=== PATIENT | male | born 1965 | race American Indian/Alaskan Native ===

== ENCOUNTER 2017-03-13 15:27 | Emergency (ER) | payer MEDICAID, OTHER ==
[2017-03-13 15:37] VITALS: BP 160/85
--- NOTE | 2017-03-13 16:34 | EDM.PDOC ---
ED HPI GENERAL MEDICAL PROBLEM - General Chief Complaint: Upper Extremity Injury/Pain Stated Complaint: LEFT ELBOW Time Seen by Provider: 03/13/17 16:31 Source of Information: Reports: Shelter Records History Limitations: Reports: No Limitations - History of Present Illness INITIAL COMMENTS - FREE TEXT/NARRATIVE: Pt states that he fell today and landed on his left elbow. c/o pain with bending. States that he has shoulder pain as well. States that he is supposed to get rotator cuff surgery soon. Onset: Today Duration: Constant Location: Reports: Upper Extremity, Left Quality: Reports: Ache Severity: Moderate Improves with: Reports: None Worsens with: Reports: Movement Context: Reports: Activity Associated Symptoms: Reports: No Other Symptoms Left Elbow Pain Score (Numeric/FACES): 7 - Related Data Allergies Allergy/AdvReac Type Severity Reaction Status Date / Time No Known Allergies Allergy Verified 03/13/17 15:33 Home Meds: Home Meds Aspirin [Kaiser Chewable] 81 mg PO 03/13/17 [History] Lisinopril 5 mg PO DAILY 03/13/17 [History] Past Medical History HEENT History: Reports: Impaired Vision Cardiovascular History: Reports: Hypertension Endocrine/Metabolic History: Reports: Other (See Below) Other Endocrine/Metabolic History: border line DM - Past Surgical History GI Surgical History: Reports: Appendectomy Social & Family History - Family History Family Medical History: Noncontributory - Tobacco Use Smoking Status *Q: Never Smoker Second Hand Smoke Exposure: No - Caffeine Use Caffeine Use: Reports: Coffee - Recreational Drug Use Recreational Drug Use: No Review of Systems - Review of Systems Review Of Systems: See Below Musculoskeletal: Reports: Arm Pain ED EXAM, GENERAL - Physical Exam Exam: See Below Exam Limited By: No Limitations General Appearance: Alert, WD/WN, No Apparent Distress Respiratory/Chest: No Respiratory Distress, Lungs Clear, Normal Breath Sounds, No Accessory Muscle Use, Chest Non-Tender Cardiovascular: Normal Peripheral Pulses, Regular Rate, Rhythm, No Edema, No Gallop, No JVD, No Murmur, No Rub Peripheral Pulses: 4+: Radial (L), Radial (R) Extremities: Normal Inspection, No Pedal Edema, Normal Capillary Refill, Arm Pain, Limited Range of Motion, Increased Warmth, Redness Neurological: Alert, Oriented, CN II-XII Intact, Normal Cognition, Normal Gait, Normal Reflexes, No Motor/Sensory Deficits Course - Vital Signs Last Recorded V/S: Last Vital Signs Temp 98.4 F 03/13/17 15:36 Pulse 103 H 03/13/17 15:36 Resp 20 03/13/17 15:36 BP 160/85 H 03/13/17 15:36 Pulse Ox 98 03/13/17 15:36 - Radiology Interpretation Free Text/Narrative:: No acute fracture of elbow Departure - Departure Time of Disposition: 17:07 Disposition: Home, Self-Care 01 Condition: Good Clinical Impression: Elbow contusion Qualifiers: Encounter type: initial encounter Laterality: left Qualified Code(s): S50.02XA - Contusion of left elbow, initial encounter - Discharge Information Instructions: How to Use a Sling, Doew-ir-Trow, Elbow Contusion Forms: ED Department Discharge Additional Instructions: Take motrin as needed for pain. Keep arm in sling for comfort but do range of motion to prevent arm from becoming stiff. Follow up in clinic in 1 week if no improvement. return for worsening symptoms.
== END 2017-03-13 17:12 | disposition home or self-care (01) ==
LOC: DL.ED 15:27
DX: S50.02XA Contusion of left elbow, initial encounter (principal); H54.7 Unspecified visual loss; I10 Essential (primary) hypertension; E11.9 Type 2 diabetes mellitus without complications; Z90.49 Acquired absence of other specified parts of digestive tract; W19.XXXA Unspecified fall, initial encounter; Z79.899 Other long term (current) drug therapy
CPT/HCPCS: 73070-LT; 99284

== ENCOUNTER 2017-09-13 15:11 | Emergency (ER) | payer MEDICAID, OTHER ==
[2017-09-13 15:21] VITALS: BP 152/96
[2017-09-13] MEDS ORDERED: methylPREDNISolone Sodium Succinate 125 MG/2 ML SDV IM ONE (16:00)
--- NOTE | 2017-09-13 16:12 | EDM.PDOC ---
ED HPI GENERAL MEDICAL PROBLEM - General Chief Complaint: Back Pain or Injury Stated Complaint: SEVERE BACK PAIN, [id number] Time Seen by Provider: 09/13/17 15:50 Source of Information: Reports: Patient History Limitations: Reports: No Limitations - History of Present Illness INITIAL COMMENTS - FREE TEXT/NARRATIVE: This 52 yo male patient reports to the ED with increased lower back pain. The patient reports he has been previously diagnosed with arthritis in his back, but has had increased symptoms over the past 2 days. The patient reports he is on an antiinflammatory, but continues to have increased lower back pain. The patient has a follow-up examination with his primary provider on Wednesday, but does not think he can handle the pain that long. Duration: Day(s): (2), Constant, Getting Worse Location: Reports: Back (lower back without sciatica) Quality: Reports: Ache, Sharp Severity: Severe Improves with: Reports: None Worsens with: Reports: None Associated Symptoms: Reports: No Other Symptoms Treatments RECEPTION CLERK: Reports: NSAIDS Left Lower Back Pain Score (Numeric/FACES): 8 - Related Data Allergies Allergy/AdvReac Type Severity Reaction Status Date / Time Penicillins Allergy Hives Verified 09/13/17 15:37 Home Meds: Home Meds Aspirin [Kaiser Chewable] 81 mg PO DAILY 03/13/17 [History] Lisinopril 5 mg PO DAILY 03/13/17 [History] Diclofenac Sodium [Voltaren] 50 mg PO DAILY 09/13/17 [History] Past Medical History HEENT History: Reports: Impaired Vision Cardiovascular History: Reports: Hypertension Endocrine/Metabolic History: Reports: Other (See Below) Other Endocrine/Metabolic History: border line DM - Past Surgical History GI Surgical History: Reports: Appendectomy Social & Family History - Family History Family Medical History: Noncontributory - Tobacco Use Smoking Status *Q: Never Smoker Second Hand Smoke Exposure: No - Caffeine Use Caffeine Use: Reports: Coffee, Soda - Recreational Drug Use Recreational Drug Use: No ED ROS GENERAL - Review of Systems Review Of Systems: ROS reveals no pertinent complaints other than HPI. ED EXAM,LOWER BACK PAIN/INJURY - Physical Exam Exam: See Below Exam Limited By: No Limitations General Appearance: Alert, WD/WN, Moderate Distress, Obese Eye Exam: Bilateral Eye: EOMI, Normal Inspection, PERRL Ears: Normal External Exam, Normal Canal, Hearing Grossly Normal, Normal TMs Nose: Normal Inspection, Normal Mucosa, No Blood Throat/Mouth: Normal Inspection, Normal Lips, Normal Teeth, Normal Gums, Normal Oropharynx, Normal Voice, No Airway Compromise Head: Atraumatic, Normocephalic Neck: Normal Inspection, Supple, Non-Tender, Full Range of Motion Respiratory/Chest: No Respiratory Distress, Lungs Clear, Normal Breath Sounds, No Accessory Muscle Use, Chest Non-Tender Cardiovascular: Normal Peripheral Pulses, Regular Rate, Rhythm, No Edema, No Gallop, No JVD, No Murmur, No Rub GI/Abdominal: Normal Bowel Sounds, Soft, Non-Tender, No Organomegaly, No Distention, No Abnormal Bruit, No Mass (Male) Exam: Deferred Rectal (Males) Exam: Deferred Back Exam: Vertebral Tenderness (lower back) Extremities: Normal Inspection, Normal Range of Motion, Non-Tender, No Pedal Edema, Normal Capillary Refill Neurological: Alert, Normal Mood/Affect, CN II-XII Intact, Oriented x 3, Difficulty Walking (due to lower back pain) Psychiatric: Normal Affect, Normal Mood Skin Exam: Warm, Dry, Intact, Normal Color, No Rash Lymphatic: No Adenopathy Course - Vital Signs Last Recorded V/S: Last Vital Signs Temp 37.3 C 09/13/17 15:18 Pulse 90 09/13/17 15:18 Resp 18 09/13/17 15:18 BP 152/96 H 09/13/17 15:18 Pulse Ox 97 09/13/17 15:18 - Orders/Labs/Meds Orders: Active Orders 24 hr Category Date Time Status Orphenadrine [Norflex] Med 09/13/17 16:00 Ordered 60 mg IM Q12H Medication Orders Orphenadrine Citrate (Norflex) 60 mg IM Q12H [facility] Meds: Medications Generic Name Dose Route Start Last Admin Trade Name Freq PRN Reason Stop Dose Admin Orphenadrine Citrate 60 mg 09/13/17 16:00 Norflex IM Q12H LUCIANO Discontinued Medications Generic Name Dose Route Start Last Admin Trade Name Freq PRN Reason Stop Dose Admin Methylprednisolone Sodium Succinate 125 mg 09/13/17 16:00 Solu-Medrol IM 09/13/17 16:01 ONETIME ONE Departure - Departure Time of Disposition: 16:09 Disposition: Home, Self-Care 01 Condition: Fair Clinical Impression: Chronic low back pain Qualifiers: Back pain laterality: midline Sciatica presence: without sciatica Qualified Code(s): M54.5 - Low back pain; G89.29 - Other chronic pain; G89.29 - Other chronic pain - Discharge Information Instructions: Chronic Back Pain, Back Pain, Adult, [id number] Care Plan Goals: The patient was advised of the examination results during the visit. The patient was given an injection of SoluMedrol and Norflex while in the ED. The patient was discharged with a script for Flexeril (10 mg) #20 to take 1 by mouth at bedtime and Prednisone (20 mg) #10 to take 2 by mouth daily until gone. The patient was encouraged to follow-up with his primary care facility as previously arranged. If the patient has any additional symptoms or concerns, the patient should either visit his primary care facility or return to the emergency department. - My Orders Last 24 Hours: My Active Orders 09/13/17 16:00 Orphenadrine [Norflex] 60 mg IM Q12H - Assessment/Plan Last 24 Hours: My Active Orders 09/13/17 16:00 Orphenadrine [Norflex] 60 mg IM Q12H
== END 2017-09-13 16:40 | disposition home or self-care (01) ==
LOC: DL.ED 15:11
DX: G89.29 Other chronic pain (principal); M54.5 Low back pain; I10 Essential (primary) hypertension; Z88.0 Allergy status to penicillin; Z79.82 Long term (current) use of aspirin; Z79.899 Other long term (current) drug therapy
CPT/HCPCS: 96372; 99283; J2360; J2930

== ENCOUNTER 2017-09-22 14:50 | Emergency (ER) | payer MEDICAID, OTHER ==
[2017-09-22 14:57] VITALS: BP 133/81
--- NOTE | 2017-09-22 15:02 | EDM.PDOC ---
ED HPI GENERAL MEDICAL PROBLEM - General Chief Complaint: Head Injury Stated Complaint: FELL HIT HEAD ON ICE AND BACK PAIN, [id number] Time Seen by Provider: 09/22/17 14:59 Source of Information: Reports: Patient, Old Records, RN, RN Notes Reviewed History Limitations: Reports: No Limitations - History of Present Illness INITIAL COMMENTS - FREE TEXT/NARRATIVE: Arrives to ER by POV with c/o of head injury and back pain sustained when he slipped on the ice and fell hitting his head 3 days ago. He made an appointment with his PCP but couldn't be seen until next week. He denies LOC, N/V, or leak of clear or bloody fluid from the nose or ears. Pt states he came to the ER today primarily due to the increased low back pain. He denies radiating pain, saddle area numbness, loss of bowel or bladder control, or motor weakness. Pt was seen here on 09/13/17 for c/o chronic low back pain and was prescribed cyclobenzaprine 10mg and prednisone with instructions to f/u with his primary doctor for recheck and pain management. Onset: Sudden Onset Date: 09/19/17 Duration: Constant Location: Reports: Head, Back Quality: Reports: Ache Severity: Severe Improves with: Reports: None Worsens with: Reports: Movement Associated Symptoms: Reports: No Other Symptoms Treatments COMMUNITY HEALTH CONSULTANT: Reports: Home Treatments, Other Medication(s) Lower Back Pain Score (Numeric/FACES): 8 - Related Data Allergies Allergy/AdvReac Type Severity Reaction Status Date / Time Penicillins Allergy Hives Verified 09/13/17 15:37 Home Meds: Home Meds Aspirin [Kaiser Chewable] 81 mg PO DAILY 03/13/17 [History] Lisinopril 5 mg PO DAILY 03/13/17 [History] Diclofenac Sodium [Voltaren] 50 mg PO DAILY 09/13/17 [History] Past Medical History HEENT History: Reports: Impaired Vision Cardiovascular History: Reports: Hypertension Musculoskeletal History: Reports: Arthritis, Back Pain, Chronic Endocrine/Metabolic History: Reports: Other (See Below) Other Endocrine/Metabolic History: border line DM - Past Surgical History GI Surgical History: Reports: Appendectomy Social & Family History - Family History Family Medical History: Noncontributory - Tobacco Use Smoking Status *Q: Never Smoker Second Hand Smoke Exposure: No - Caffeine Use Caffeine Use: Reports: Coffee, Soda - Recreational Drug Use Recreational Drug Use: No - Living Situation & Occupation Living situation: Reports: , with Family Occupation: Employed ED ROS GENERAL - Review of Systems Review Of Systems: ROS reveals no pertinent complaints other than HPI. ED EXAM, HEAD INJURY - Physical Exam Exam: See Below Exam Limited By: No Limitations General Appearance: Alert, WD/WN, No Apparent Distress Head: Normocephalic, Scalp Hematoma (and bruising to left frontal and parietal scalp), Scalp Tenderness. No: Scalp Lacerations, Scalp Swelling, Scalp Abrasions, Kohler's Sign, Facial Swelling, Facial Tenderness, Raccoon Eyes Nexus Criteria: No: Posterior, Midline Cervical Tenderness, Evidence of Intoxication, Altered Level of Consciousness, Focal Neurological Deficit, Painful Distraction Injuries Eyes: Bilateral Eye: EOMI, Normal Inspection, PERRL Ears: Normal External Exam, Normal Canal, Hearing Grossly Normal, Normal TMs. No: Canal Blood, Canal Discharge, TM Blood, TM Fluid Throat/Mouth: Normal Inspection, Normal Lips, Normal Teeth, Normal Gums, Normal Oropharynx, Normal Voice, No Airway Compromise Neck: Non-Tender, Full Range of Motion, Normal Alignment, Normal Inspection Respiratory: No Respiratory Distress, Lungs Clear, Normal Breath Sounds, No Accessory Muscle Use, Chest Non-Tender Cardiovascular: Regular Rate, Rhythm GI/Abdominal Exam: Normal Bowel Sounds, Soft, Non-Tender, No Distention, No Abnormal Bruit (Male) Exam: Deferred Rectal (Males) Exam: Deferred Back Exam: Decreased Range of Motion (lumbar, L/S jct.), Muscle Spasm (lumbar region), Paraspinal Tenderness. No: CVA Tenderness (L), CVA Tenderness (R), Vertebral Tenderness Extremities: Normal Inspection, Normal Range of Motion, Non-Tender, No Pedal Edema Neurologic: retanned leather roller II-XII nml As Tested, No Motor/Sensory Deficits, Alert, Normal Mood/Affect, Oriented x 3 - [place] Coma Score Best Eye Response ([place]): (4) Open Spontaneously Best Verbal Response ([place]): (5) Oriented Best Motor Response ([place]): (6) Obeys Commands [place] Total: 15 Course - Vital Signs Last Recorded V/S: Last Vital Signs Temp 36.8 C 09/22/17 14:56 Pulse 84 09/22/17 14:56 Resp 18 09/22/17 14:56 BP 133/81 09/22/17 14:56 Pulse Ox 100 09/22/17 14:56 - Orders/Labs/Meds Orders: Active Orders 24 hr Category Date Time Status Ketorolac [Toradol] Med 09/22/17 15:19 Once 60 mg IM ONETIME ONE Orphenadrine [Norflex] Med 09/22/17 15:20 Once 60 mg IM ONETIME ONE Departure - Departure Time of Disposition: 15:29 Disposition: Home, Self-Care 01 Condition: Good Clinical Impression: Acute exacerbation of chronic low back pain, Spasm of muscle of lower back Concussion without loss of consciousness Qualifiers: Encounter type: initial encounter Qualified Code(s): S06.0X0A - Concussion without loss of consciousness, initial encounter Fall due to ice or snow Qualifiers: Encounter type: initial encounter Qualified Code(s): W00.9XXA - Unspecified fall due to ice and snow, initial encounter - Discharge Information Instructions: Concussion, Adult, [id number], Back Pain, Adult, [id number] Forms: ED Department Discharge Additional Instructions: Rx: Cyclobenzaprine 10mg Rx: Tramadol 50mg *Do not drive while under the influence of either or these medications. Follow up in clinic with your doctor next week for recheck. - My Orders Last 24 Hours: My Active Orders 09/22/17 15:19 Ketorolac [Toradol] 60 mg IM ONETIME ONE 09/22/17 15:20 Orphenadrine [Norflex] 60 mg IM ONETIME ONE - Assessment/Plan Last 24 Hours: My Active Orders 09/22/17 15:19 Ketorolac [Toradol] 60 mg IM ONETIME ONE 09/22/17 15:20 Orphenadrine [Norflex] 60 mg IM ONETIME ONE
[2017-09-22] MEDS ORDERED: Ketorolac 30 MG/ML SDV IM ONE (15:19)
== END 2017-09-22 15:45 | disposition home or self-care (01) ==
LOC: DL.ED 14:50
DX: S06.0X0A Concussion without loss of consciousness, initial encounter (principal); M62.830 Muscle spasm of back; I10 Essential (primary) hypertension; Z88.0 Allergy status to penicillin; Z79.82 Long term (current) use of aspirin; Z79.899 Other long term (current) drug therapy; W00.9XXA Unspecified fall due to ice and snow, initial encounter
CPT/HCPCS: 96372; 99283; J1885; J2360

== ENCOUNTER 2019-02-04 20:48 | Emergency (ER) | payer OTHER ==
[2019-02-04 20:58] VITALS: BP 145/96
[2019-02-04 21:31] LABS: ANION GAP 16.1; CHLORIDE,CL 101 mmol/L (101-111); SODIUM,NA 133 mmol/L (135-145)
[2019-02-04] MEDS ORDERED: Insulin Regular, Human 100 Units/ML 3 ML Vial IV ONE ×2 (21:49→21:53)
[2019-02-04] MEDS ORDERED: Fluconazole 100 MG Tab PO ONE (21:52)
[2019-02-04] MEDS ORDERED: Ciprofloxacin 500 MG Tab PO ONE (21:52)
--- NOTE | 2019-02-04 22:04 | EDM.PDOC ---
ED HPI GENERAL MEDICAL PROBLEM - General Chief Complaint: General Stated Complaint: STROY WHEN URINATING Time Seen by Provider: 02/04/19 21:00 Source of Information: Reports: Patient History Limitations: Reports: No Limitations - History of Present Illness INITIAL COMMENTS - FREE TEXT/NARRATIVE: ED with c/o burning intermittently with urination and pain to end of penis, Denies scrotal pain. Denies discharge fever or chills. No increase in frequency. Reports blood sugars being high. Recent clinic visit Long acting insulin increased to 35 units at bedtime. Not on short acting insulin. - Related Data Allergies Allergy/AdvReac Type Severity Reaction Status Date / Time Penicillins Allergy Hives Verified 02/04/19 20:54 Home Meds: Home Meds Aspirin [Kaiser Chewable] 81 mg PO DAILY 03/13/17 [History] Lisinopril 5 mg PO DAILY 03/13/17 [History] Diclofenac Sodium [Voltaren] 50 mg PO DAILY 09/13/17 [History] Past Medical History HEENT History: Reports: Impaired Vision Cardiovascular History: Reports: Hypertension Respiratory History: Reports: None Gastrointestinal History: Reports: None Genitourinary History: Reports: None Musculoskeletal History: Reports: Arthritis, Back Pain, Chronic Neurological History: Reports: None Psychiatric History: Reports: None Endocrine/Metabolic History: Reports: Diabetes, Type II Other Endocrine/Metabolic History: border line DM Hematologic History: Reports: None Immunologic History: Reports: None Oncologic (Cancer) History: Reports: None Dermatologic History: Reports: None - Past Surgical History GI Surgical History: Reports: Appendectomy Social & Family History - Family History Family Medical History: Noncontributory - Tobacco Use Smoking Status *Q: Never Smoker - Caffeine Use Caffeine Use: Reports: Coffee, Soda - Recreational Drug Use Recreational Drug Use: No - Living Situation & Occupation Living situation: Reports: , with Family Occupation: Employed ED ROS GENERAL - Review of Systems Review Of Systems: ROS reveals no pertinent complaints other than HPI. Constitutional: Denies: Fever, Chills HEENT: Reports: No Symptoms Respiratory: Reports: No Symptoms Cardiovascular: Reports: No Symptoms GI/Abdominal: Denies: Abdominal Pain : Reports: Dysuria, Pain. Denies: Discharge, Flank Pain, Frequency, Urgency Skin: Reports: No Symptoms Neurological: Reports: No Symptoms ED EXAM, GENERAL - Physical Exam Exam: See Below Exam Limited By: No Limitations General Appearance: Alert, No Apparent Distress Ears: Normal External Exam Nose: Normal Inspection Throat/Mouth: Normal Inspection Neck: Normal Inspection Respiratory/Chest: No Respiratory Distress, Lungs Clear Cardiovascular: Normal Peripheral Pulses, Regular Rate, Rhythm GI/Abdominal: Normal Bowel Sounds, Soft, Non-Tender (Male) Exam: Other (mild redness to foreskin, moderate amount thick white discharge inner foreskin). No: Circumcised, Scrotal Swelling, Scrotum Tenderness (L) Extremities: Normal Inspection Neurological: Alert, Oriented Skin Exam: Warm, Dry, Intact Course - Vital Signs Last Recorded V/S: Last Vital Signs Temp 97.4 F 02/04/19 20:54 Pulse 99 02/04/19 20:54 Resp 18 02/04/19 20:54 BP 145/96 H 02/04/19 20:54 Pulse Ox 95 02/04/19 20:54 - Orders/Labs/Meds Orders: Active Orders 24 hr Category Date Time Status Glucose [Blood Glucose Check, Bedside] [RC] ONETIME Care 02/04/19 21:04 Active CHLAMYDIA AND GONORRHEA BY TMA Stat Lab 02/04/19 21:05 Received CULTURE URINE [RM] Urgent Lab 02/04/19 21:07 Received Labs: Laboratory Tests 02/04/19 02/04/19 02/04/19 Range/Units 21:03 21:03 21:03 WBC 9.7 (5.0-10.0) 10^3/uL RBC 5.32 (4.6-6.2) 10^6/uL Hgb 15.9 (14.0-18.0) g/dL Hct 44.8 (40.0-54.0) % MCV 84.2 (80-100) fL MCH 29.9 (27.0-34.0) pg MCHC 35.5 H (33.0-35.0) g/dL Plt Count 227 (150-450) 10^3/uL Neut % (Auto) 65.9 (42.2-75.2) % Lymph % (Auto) 25.1 (20.5-50.1) % [place] % (Auto) 6.5 (2-8) % Eos % (Auto) 2.2 (1.0-3.0) % Baso % (Auto) 0.3 (0.0-1.0) % Sodium 133 L (135-145) mmol/L Potassium 4.1 (3.6-5.0) mmol/L Chloride 101 (101-111) mmol/L Carbon Dioxide 20.0 L (21.0-31.0) mmol/L Anion Gap 16.1 BUN 16 (7-18) mg/dL Creatinine 0.9 (0.6-1.3) mg/dL Est Cr Clr Drug Dosing 110.62 mL/min Estimated GFR (MDRD) > 60 BUN/Creatinine Ratio 17.77 Glucose 423 H* (74-105) mg/dL POC Glucose (70-105) mg/dl Lactic Acid 1.0 (0.5-2.2) mmol/L Calcium 8.8 (8.4-10.2) mg/dl Total Bilirubin 0.9 (0.2-1.0) mg/dL AST 19 (10-42) IU/L ALT 28 (10-60) IU/L Alkaline Phosphatase 121 (42-121) IU/L Total Protein 7.3 (6.7-8.2) g/dl Albumin 4.1 (3.2-5.5) g/dl Globulin 3.2 Albumin/Globulin Ratio 1.28 Amylase 45 (28-100) U/L Lipase 50 (22-51) U/L Urine Color (YELLOW) Urine Appearance (CLEAR) Urine pH (5.0-9.0) Ur Specific [place] (1.005-1.030) Urine Protein (NEGATIVE) Urine Glucose (UA) (NEGATIVE) Urine Ketones (NEGATIVE) Urine Occult Blood (NEGATIVE) Urine Nitrite (NEGATIVE) Urine Bilirubin (NEGATIVE) Urine Urobilinogen (0.2-1.0) mg/dL Ur Leukocyte Esterase (NEGATIVE) Urine RBC /HPF Urine WBC (0-5/HPF) /HPF Ur Epithelial Cells /HPF Amorphous Sediment (0/HPF) /HPF Urine Bacteria (0-FEW/HPF) /HPF Urine Mucus /LPF Urine Yeast (0/HPF) /HPF Ketones Negative 02/04/19 02/04/19 02/04/19 Range/Units 21:03 21:07 22:33 WBC (5.0-10.0) 10^3/uL RBC (4.6-6.2) 10^6/uL Hgb (14.0-18.0) g/dL Hct (40.0-54.0) % MCV (80-100) fL MCH (27.0-34.0) pg MCHC (33.0-35.0) g/dL Plt Count (150-450) 10^3/uL Neut % (Auto) (42.2-75.2) % Lymph % (Auto) (20.5-50.1) % [place] % (Auto) (2-8) % Eos % (Auto) (1.0-3.0) % Baso % (Auto) (0.0-1.0) % Sodium (135-145) mmol/L Potassium (3.6-5.0) mmol/L Chloride (101-111) mmol/L Carbon Dioxide (21.0-31.0) mmol/L Anion Gap BUN (7-18) mg/dL Creatinine (0.6-1.3) mg/dL Est Cr Clr Drug Dosing mL/min Estimated GFR (MDRD) BUN/Creatinine Ratio Glucose (74-105) mg/dL POC Glucose 375 H 437 H* (70-105) mg/dl Lactic Acid (0.5-2.2) mmol/L Calcium (8.4-10.2) mg/dl Total Bilirubin (0.2-1.0) mg/dL AST (10-42) IU/L ALT (10-60) IU/L Alkaline Phosphatase (42-121) IU/L Total Protein (6.7-8.2) g/dl Albumin (3.2-5.5) g/dl Globulin Albumin/Globulin Ratio Amylase (28-100) U/L Lipase (22-51) U/L Urine Color Yellow (YELLOW) Urine Appearance Slightly cloudy (CLEAR) Urine pH 5.5 (5.0-9.0) Ur Specific [place] 1.015 (1.005-1.030) Urine Protein Negative (NEGATIVE) Urine Glucose (UA) >=1000 H (NEGATIVE) Urine Ketones 15 H (NEGATIVE) Urine Occult Blood Small H (NEGATIVE) Urine Nitrite Negative (NEGATIVE) Urine Bilirubin Negative (NEGATIVE) Urine Urobilinogen 1.0 (0.2-1.0) mg/dL Ur Leukocyte Esterase Small H (NEGATIVE) Urine RBC 0-5 /HPF Urine WBC 20-30 H (0-5/HPF) /HPF Ur Epithelial Cells Rare /HPF Amorphous Sediment Rare (0/HPF) /HPF Urine Bacteria Occasional (0-FEW/HPF) /HPF Urine Mucus Rare /LPF Urine Yeast Moderate H (0/HPF) /HPF Ketones Meds: Medications Discontinued Medications Generic Name Dose Route Start Last Admin Trade Name Karen PRN Reason Stop Dose Admin Ciprofloxacin 500 mg 02/04/19 21:52 02/04/19 21:58 Ciprofloxacin Hcl PO 02/04/19 21:53 500 mg ONETIME ONE Administration Fluconazole 100 mg 02/04/19 21:52 02/04/19 21:58 Diflucan PO 02/04/19 21:53 100 mg ONETIME ONE Administration Insulin Human Regular 10 unit 02/04/19 21:49 Humulin R IV 02/04/19 21:50 ONETIME ONE Protocol Insulin Human Regular 5 unit 02/04/19 21:53 02/04/19 21:59 Humulin R IV 02/04/19 21:54 5 units ONETIME ONE Administration Departure - Departure Time of Disposition: 21:56 Disposition: Home, Self-Care 01 Condition: Good Clinical Impression: Hyperglycemia, Dysuria, UTI (urinary tract infection) - Discharge Information *PRESCRIPTION DRUG MONITORING PROGRAM REVIEWED*: No *COPY OF PRESCRIPTION DRUG MONITORING REPORT IN PATIENT FINA: No Instructions: Urinary Tract Infection, Adult, [id number] Forms: ED Department Discharge Additional Instructions: cipro 500mg one twice daily for one week increase fluid monitor blood sugar, watch diet to lower blood sugar recheck clinic this week clotrimazole to end of penis twice daily good hygiene of area - My Orders Last 24 Hours: My Active Orders 02/04/19 21:04 Glucose [Blood Glucose Check, Bedside] [RC] ONETIME 02/04/19 21:05 CHLAMYDIA AND GONORRHEA BY TMA Stat 02/04/19 21:07 CULTURE URINE [RM] Urgent - Assessment/Plan Last 24 Hours: My Active Orders 02/04/19 21:04 Glucose [Blood Glucose Check, Bedside] [RC] ONETIME 02/04/19 21:05 CHLAMYDIA AND GONORRHEA BY TMA Stat 02/04/19 21:07 CULTURE URINE [RM] Urgent
== END 2019-02-04 22:42 | disposition home or self-care (01) ==
LOC: DL.ED 20:48
DX: N39.0 Urinary tract infection, site not specified (principal); E11.65 Type 2 diabetes mellitus with hyperglycemia; I10 Essential (primary) hypertension; Z79.82 Long term (current) use of aspirin; Z79.899 Other long term (current) drug therapy; Z88.0 Allergy status to penicillin
CPT/HCPCS: 36415; 80053; 81001; 82009; 82150; 82962; 83605; 83690; 85025; 87086; 87491; 87591; 99283; A9270; J1815

== ENCOUNTER 2021-08-21 19:59 | Emergency (ER) | payer MEDICAID ==
[2021-08-21 20:42] VITALS: BP 145/78; PULSE 84
--- NOTE | 2021-08-21 20:43 | EDM.PDOC ---
ED HPI GENERAL MEDICAL PROBLEM - General Chief Complaint: Chest Pain Stated Complaint: SHARP CHEST PAINS IN LEFT SIDE OF CHEST Time Seen by Provider: 08/21/21 20:40 Source of Information: Reports: Patient History Limitations: Reports: No Limitations - History of Present Illness INITIAL COMMENTS - FREE TEXT/NARRATIVE: ED with c/o intermittent sharp needle like stabbing chest pain last ing only few seconds. one episode around 7 pm tonight an couple yesterday. Non smoker, no prior heart hx. No SOB. COVID tested 2 days prior at work and negative - Related Data Allergies Allergy/AdvReac Type Severity Reaction Status Date / Time Penicillins Allergy Hives Verified 08/21/21 20:31 Home Meds: Home Meds Aspirin [[facility] Chewable] 81 mg PO DAILY 03/13/17 [History] Lisinopril 5 mg PO DAILY 03/13/17 [History] Past Medical History HEENT History: Reports: Impaired Vision Cardiovascular History: Reports: Hypertension Respiratory History: Reports: None Gastrointestinal History: Reports: None Genitourinary History: Reports: None Musculoskeletal History: Reports: Arthritis, Back Pain, Chronic Neurological History: Reports: None Psychiatric History: Reports: None Endocrine/Metabolic History: Reports: Diabetes, Type II Other Endocrine/Metabolic History: border line DM Hematologic History: Reports: None Immunologic History: Reports: None Oncologic (Cancer) History: Reports: None Dermatologic History: Reports: None - Past Surgical History Other HEENT Surgeries/Procedures: wears glasses GI Surgical History: Reports: Appendectomy Social & Family History - Family History Family Medical History: No Pertinent Family History - Tobacco Use Tobacco Use Status *Q: Never Tobacco User Second Hand Smoke Exposure: No - Caffeine Use Caffeine Use: Reports: None - Recreational Drug Use Recreational Drug Use: No - Living Situation & Occupation Living situation: Reports: , with Family Occupation: Employed ED ROS GENERAL - Review of Systems Review Of Systems: Comprehensive ROS is negative, except as noted in HPI. ED EXAM, GENERAL - Physical Exam Exam: See Below Exam Limited By: No Limitations General Appearance: Alert, No Apparent Distress Eye Exam: Bilateral Eye: EOMI Ears: Normal External Exam Nose: Normal Inspection Throat/Mouth: Normal Inspection Head: Atraumatic, Normocephalic Neck: Normal Inspection, Full Range of Motion Respiratory/Chest: No Respiratory Distress, Lungs Clear, Normal Breath Sounds Cardiovascular: Normal Peripheral Pulses, Regular Rate, Rhythm GI/Abdominal: Normal Bowel Sounds Back Exam: Normal Inspection, Full Range of Motion Extremities: Normal Inspection Neurological: Alert, Oriented, Normal Cognition Psychiatric: Normal Affect Skin Exam: Warm, Dry, Intact, Normal Color, Tattoo(s) #1 Interpretation EKG Date: 08/21/21 Time: 20:29 Rhythm: NSR Rate (Beats/Min): 80 [place]: Normal P-Wave: Present QRS: Normal ST-T: Normal Comparison: NA - No Prior EKG Course - Vital Signs Last Recorded V/S: Last Vital Signs Temp 98.4 F 08/21/21 20:29 Pulse 84 08/21/21 20:29 Resp 16 08/21/21 20:29 BP 145/78 H 08/21/21 20:29 Pulse Ox 95 08/21/21 20:29 - Orders/Labs/Meds Labs: Laboratory Tests 08/21/21 08/21/21 08/21/21 Range/Units 20:38 20:55 20:55 WBC 9.9 (5.0-10.0) 10^3/uL RBC 5.09 (4.6-6.2) 10^6/uL Hgb 14.8 (14.0-18.0) g/dL Hct 43.8 (40.0-54.0) % MCV 86.1 (80-100) fL MCH 29.1 (27.0-34.0) pg MCHC 33.8 (33.0-35.0) g/dL Plt Count 388 D (150-450) 10^3/uL Neut % (Auto) 61.4 (42.2-75.2) % Lymph % (Auto) 26.6 (20.5-50.1) % Antelope % (Auto) 8.0 (2-8) % Eos % (Auto) 3.8 H (1.0-3.0) % Baso % (Auto) 0.2 (0.0-1.0) % D-Dimer, Quantitative (0-400) ng/mL Sodium 140 (136-145) mmol/L Potassium 3.9 (3.5-5.1) mmol/L Chloride 106 (98-107) mmol/L Carbon Dioxide 27 (21-32) mmol/L Anion Gap 10.9 (7-13) mEq/L BUN 14 (7-18) mg/dL Creatinine 1.25 (0.70-1.30) mg/dL Est Cr Clr Drug Dosing 77.93 mL/min Estimated GFR (MDRD) 60 BUN/Creatinine Ratio 11.2 (No establ ref range) Glucose 177 H (70-99) mg/dL Calcium 8.1 L (8.5-10.1) mg/dL Total Bilirubin 0.4 (0.2-1.0) mg/dL AST 17 (15-37) U/L ALT 33 (16-63) U/L Alkaline Phosphatase 107 (46-116) U/L Troponin I High Sens < 4 (<=76) pg/mL Total Protein 7.4 (6.4-8.2) g/dL Albumin 3.6 (3.4-5.0) g/dL Globulin 3.8 Albumin/Globulin Ratio 0.9 SARS-CoV-2 RNA ([facility]) Positive H (NEGATIVE) 08/21/21 Range/Units 20:55 WBC (5.0-10.0) 10^3/uL RBC (4.6-6.2) 10^6/uL Hgb (14.0-18.0) g/dL Hct (40.0-54.0) % MCV (80-100) fL MCH (27.0-34.0) pg MCHC (33.0-35.0) g/dL Plt Count (150-450) 10^3/uL Neut % (Auto) (42.2-75.2) % Lymph % (Auto) (20.5-50.1) % Antelope % (Auto) (2-8) % Eos % (Auto) (1.0-3.0) % Baso % (Auto) (0.0-1.0) % D-Dimer, Quantitative < 100 (0-400) ng/mL Sodium (136-145) mmol/L Potassium (3.5-5.1) mmol/L Chloride (98-107) mmol/L Carbon Dioxide (21-32) mmol/L Anion Gap (7-13) mEq/L BUN (7-18) mg/dL Creatinine (0.70-1.30) mg/dL Est Cr Clr Drug Dosing mL/min Estimated GFR (MDRD) BUN/Creatinine Ratio (No establ ref range) Glucose (70-99) mg/dL Calcium (8.5-10.1) mg/dL Total Bilirubin (0.2-1.0) mg/dL AST (15-37) U/L ALT (16-63) U/L Alkaline Phosphatase (46-116) U/L Troponin I High Sens (<=76) pg/mL Total Protein (6.4-8.2) g/dL Albumin (3.4-5.0) g/dL Globulin Albumin/Globulin Ratio SARS-CoV-2 RNA ([facility]) (NEGATIVE) Departure - Departure Time of Disposition: 22:44 Disposition: Home, Self-Care 01 Condition: Good Clinical Impression: COVID Instructions: COVID-19 Frequently Asked Questions, COVID-19: How to Protect Yourself and Others - CDC, COVID-19: Quarantine vs. Isolation - CDC (09/12/2020) Referrals: PCP,None [Primary Care Provider] - Forms: ED Department Discharge Additional Instructions: rest tylenol 500mg every 4 hours as needed for discomfort follow up if severe difficulty breathing , or nausea and vomiting quarantine, good handwashing
[2021-08-21 21:21] LABS: ANION GAP 10.9 mEq/L (7-13); CHLORIDE,CL 106 mmol/L (98-107); SODIUM,NA 140 mmol/L (136-145)
--- NOTE | 2021-08-21 22:20 | CR ---
PROCEDURE INFORMATION: Exam: XR Chest Exam date and time: 08/21/2021 9:08 PM Age: 56 years old Clinical indication: Other: Chest pain TECHNIQUE: Imaging protocol: XR of the chest. Views: 1 view. COMPARISON: No relevant prior studies available. FINDINGS: Airway: Patent Lungs: Unremarkable. No consolidation. Pleural spaces: Unremarkable. No pleural effusion. No pneumothorax. Heart/Mediastinum: Unremarkable. No cardiomegaly. Bones/joints: No acute skeletal abnormality or aggressive osseous lesion. IMPRESSION: No acute findings.
== END 2021-08-21 22:57 | disposition home or self-care (01) ==
LOC: DL.ED 19:59
DX: U07.1 COVID-19 (principal); E11.9 Type 2 diabetes mellitus without complications; I10 Essential (primary) hypertension; Z88.0 Allergy status to penicillin; Z79.82 Long term (current) use of aspirin; Z79.899 Other long term (current) drug therapy
CPT/HCPCS: 36415; 71045; 80053; 84484; 85025; 85379; 93005; 99285-25; U0002